=== PATIENT | male | born 1960 | race Caucasian/White ===

== ENCOUNTER 2018-07-17 14:50 | Emergency (ER) | payer MEDICAID, OTHER ==
[2018-07-17 15:18] VITALS: BP 139/92
--- NOTE | 2018-07-17 16:48 | UC ---
Dental HPI - HPI Summary HPI Summary: 4 DAYS AGO GOT SOMETHING STUCK IN BETWEEN HIS TEETH - LEFT LOWER. HE FLOSSED AGGRESSIVELY TO GET IT OUT AND SINCE THEN HAS HAD INCREASING PAIN AND SWELLING TO THE ADJACENT GUMS. NO DIFFICULTY SWALLOWING OR BREATHING. - History of Current Complaint Chief Complaint: UCDentalProblem Stated Complaint: JAW PAIN Time Seen by Provider: 07/17/18 16:40 Hx Obtained From: Patient Onset/Duration: Gradual Onset, Lasting Days, Still Present Severity: Moderate Pain Intensity: 4 Pain Scale Used: 0-10 Numeric Aggravating Factor(s): Chewing - Allergies/Home Medications Allergies/Adverse Reactions: Allergies Allergy/AdvReac Type Severity Reaction Status Date / Time No Known Allergies Allergy Verified 07/17/18 15:18 PMH/Surg Hx/FS Hx/Imm Hx Previously Healthy: Yes - Surgical History Surgical History: None - Family History Known Family History: Negative: Cardiac Disease, Hypertension, Diabetes - Social History Alcohol Use: Occasionally Substance Use Type: Marijuana Smoking Status (MU): Never Smoked Tobacco Review of Systems All Other Systems Reviewed And Are Negative: Yes Constitutional: Positive: Negative ENT: Positive: Dental Pain - PAIN AT GUMS Respiratory: Positive: Negative Cardiovascular: Positive: Negative Gastrointestinal: Positive: Negative Physical Exam Triage Information Reviewed: Yes Appearance: Well-Appearing, No Pain Distress, Well-Nourished Vital Signs: Initial Vital Signs Temp 97.7 F 07/17/18 15:13 Pulse 86 07/17/18 15:13 Resp 20 07/17/18 15:13 BP 139/92 07/17/18 15:13 Pulse Ox 99 07/17/18 15:13 Vital Signs Reviewed: Yes Eyes: Positive: Conjunctiva Clear ENT: Positive: Hearing grossly normal, Pharynx normal, Other - ABSCESS LEFT LOWER GUMLINE ADJACENT TO 1ST MOLAR. Negative: Tonsillar swelling, Tonsillar exudate Dental: Negative: Percussion Tenderness @ Neck: Positive: Supple, Tenderness @ - LEFT SPFL CERVICAL LAD, Enlarged Nodes @ - LEFT SPFL CERVICAL LAD Respiratory: Positive: No respiratory distress, No accessory muscle use Cardiovascular: Positive: Pulses Normal Abdomen Description: Positive: Soft Musculoskeletal: Positive: No Edema Neurological: Positive: Alert Psychological: Positive: Age Appropriate Behavior Skin: Negative: Rashes Dental Complaint Course/Dx - Differential Dx/Diagnosis Provider Diagnosis: Dental abscess Discharge - Sign-Out/Discharge Documenting (check all that apply): Patient Departure All imaging exams completed and their final reports reviewed: No Studies - Discharge Plan Condition: Stable Disposition: HOME Prescriptions: Amoxicillin/Clavulanate TAB* [Augmentin TAB 875*] 875 mg PO BID #20 tab Chlorhexidine MW 0.12% 473ML* [Peridex Mouth Wash 0.12%*] 15 ml SWISH SPIT BID # 1 bottle Patient Education Materials: Dental Abscess (ED) Referrals: No Primary Care Phys,NOPCP [Primary Care Provider] - Additional Instructions: TAKE THE ANTIBIOTICS FOR THE FULL COURSE. RINSE YOUR MOUTH WITH WATER AFTER EATING OR DRINKING ANYTHING. ANTISEPTIC MOUTH RINSE TWICE DAILY. OTC MEDS NEEDED FOR DISCOMFORT. FOLLOW-UP WITH A DENTIST [facility]. IBUPROFEN MAX DOSE: 600MG (3 TABS) EVERY 6 HRS OR 800MG (4 TABS) EVERY 8 HRS OR NAPROXEN MAX DOSE: 440MG (2 TABS) EVERY 12 HRS TYLENOL MAX DOSE: 1000MG (2 EXTRA STRENGTH TABS) EVERY 8 HRS OR 650MG (2 REGULAR TABS) EVERY 6 HRS FOLLOW-UP WITH A DENTIST [facility]AN[facility]. GO TO THE ER WITHOUT FAIL IF YOU DEVELOP WORSENING PAIN, DIFFICULTY SWALLOWING, FEVER OR ANY OTHER CONCERNING SYMPTOMS. CALL THE NUMBER BELOW FOR ASSISTANCE IN ESTABLISHING WITH A PCP An additional resource available to assist in finding the appropriate physician for your health care needs is [facility] ([facility]). You may contact them by calling [phone]. - Billing Disposition and Condition Condition: STABLE Disposition: Home
== END 2018-07-17 17:05 | disposition home or self-care (01) ==
LOC: UCEAST 14:50
DX: K04.7 Periapical abscess without sinus (principal)
CPT/HCPCS: 99212; G0463